=== PATIENT | male | born 1990 | race Caucasian/White ===

== ENCOUNTER 2019-10-04 14:37 | Emergency (ER) | payer MEDICAID ==
[~2019-10-04] VITALS: Ht 188 cm; Wt 90.7 kg
--- NOTE | 2019-10-04 14:55 | NUR ---
PT AMBULATED TO ER BED 10
[2019-10-04 15:01] VITALS: BP 138/75
--- NOTE | 2019-10-04 15:12 | NUR ---
PT C/O NON-RADIATING INTERMITTENT UPPER ABDOMINAL PAIN FOR ONE MONTH. DENIES COUGH, FEVER, NAUSEA, DIARRHEA, OR CONSTIPATION. LBM WAS THIS MONING. SMYTH'S SIGN NEGATIVE. NO CVAT BILATERAL. NO ABDOMINAL GURADING, TENDERNESS, OR REBOUND TENDERNESS ON LIGHT AND DEEP PALPATION. NO TYE'S SIGN OR MENDENHALL BOOKER'S SIGN. PT DENIES ANY FEVER, CP, SOB, OR COUGH AT THIS TIME; PATIENT STATES PAIN OF 6/10 AT THIS TIME; VSS; PATIENT POSITIONED FOR COMFORT; HOB ELEVATED; BEDRAILS UP X1; BED DOWN. ER MD MADE AWARE OF PT STATUS.
[2019-10-04 16:14] LABS: BASOPHILS % (AUTO) 0.7 % (0.0-2.0); EOSINOPHILS # (AUTO) 0.1 K/uL (0-0.4); EOSINOPHILS % (AUTO) 2.2 % (0.0-4.0); HEMATOCRIT 47.1 % (36-52); HEMOGLOBIN 15.7 g/dL (12.0-18.0); LYMPHOCYTES # (AUTO) 0.9 K/uL (2.0-11.5); LYMPHOCYTES % (AUTO) 15.4 % (20.5-51.1); MEAN CORPUSCULAR HEMOGLOBIN 31 pg (27-31); MEAN CORPUSCULAR HGB CONC 33 g/dL (33-37); MONOCYTES # (AUTO) 0.8 K/uL (0.8-1.0); MONOCYTES % (AUTO) 12.4 % (1.7-9.3); NEUTROPHILS # (AUTO) 4.3 K/uL (1.8-7.7); NEUTROPHILS % (AUTO) 69.3 % (42.2-75.2); PLATELET COUNT (AUTO) 214 K/uL (140-450); RED BLOOD CELL COUNT(AUTO) 5.11 MIL/uL (4.20-6.10); RED CELL DISTRIBUTION WIDTH 13.2 % (11.6-13.7); WHITE BLOOD COUNT (AUTO) 6.1 K/uL (4.8-10.8)
[2019-10-04 16:36] LABS: APPEARANCE,URINE CLEAR (CLEAR); BILIRUBIN,URINE NEGATIVE (NEGATIVE); BLOOD, URINE NEGATIVE (NEGATIVE); COLOR,URINE YELLOW (YELLOW); LEUKOCYTE ESTERASE ,URINE NEGATIVE (NEGATIVE); NITRITE, URINE NEGATIVE (NEGATIVE); UGLUCOSE NEGATIVE (NEGATIVE)
[2019-10-04 16:42] LABS: ALBUMIN 4.2 g/dL (3.4-5.0); ANION GAP 7.3 (8-16); CARBON DIOXIDE 33.7 mmol/L (21-32); TOTAL BILIRUBIN 0.4 mg/dL (0.0-1.0)
--- NOTE | 2019-10-04 17:25 | NUR ---
PT TAKEN TO CT VIA W/C.
[2019-10-04 18:12] VITALS: BP 128/80
--- NOTE | 2019-10-04 18:12 | NUR ---
IV removed, catheter intact and site benign. Applied folded 4x4 gauze and tape to stop bleeding.
== END 2019-10-04 18:12 | disposition home or self-care (01) ==
LOC: MED 14:37
DX: K59.00 Constipation, unspecified (principal); Z90.49 Acquired absence of other specified parts of digestive tract; Z98.890 Other specified postprocedural states
CPT/HCPCS: 36415; 74177; 80053; 81003; 83690; 85025; 99285; Q9967